=== PATIENT | female | born 1995 | race Caucasian/White ===

== ENCOUNTER → 2019-11-07 12:40 | Outpatient (CLI) | payer BC, SELFPAY ==
--- NOTE | 2019-11-07 12:42 | CA_ITS ---
APPROVED REPORT EXAM: Comprehensive 2D, Doppler, and color-flow Echocardiogram Hvac Project Engineer: Philomena Garza RVT Ht: 5 ft 3 in Wt: 203lbs BSA: 1.95 BP: 120/80 mmHg Indications: Palpitations, Dyspnea, Hypertension,Tachycardia,Smoker,GERD 2D Dimensions LVOT 1.90 cm (M/F) 1.5-2.5 M-Mode Dimensions RVDd 1.94 cm (0.9-2.6) LVDd 4.50 cm (3.5-5.7) LVDs 3.00 cm (3.5-5.7) IVSd 1.23 cm (0.6-1.1) PWd 0.60 cm (0.6-1.1) EF (Teich) 62.10% FS 33.30% EDV (Teich) 92.40 mL ESV (Teich) 35.00 mL LV Diastology E/A Ratio 0.17 Mitral Valve MV A Velocity 85.00 (40-130 cm/s) Left Ventricle Left atrium is normal size, left ventricle is normal size, there is no concentric left ventricular hypertrophy, visually estimated ejection fraction 55% with no regional wall motion abnormality, diastolic parameters are within normal range. Right Ventricle Right atrium and right ventricular normal size and contractility. Aortic Valve Aortic valve is grossly normal. There is no aortic stenosis or aortic insufficiency. Mitral Valve Mitral valve is grossly normal, there is trace mitral regurgitation. Tricuspid Valve Tricuspid valve is grossly normal, there is trace tricuspid regurgitation. Pulmonic Valve Pulmonic valve is poorly visualized. Great Vessels Aortic root is normal size. Pericardium No significant pericardial effusion noted. Conclusion 1. Normal left ventricular size, preserved left ventricular systolic function, visually estimated ejection fraction 55% with no regional wall motion abnormality, diastolic parameters are within normal range. 2. Trace mitral and tricuspid regurgitation. 3. No significant pericardial effusion noted. Electronically signed by : Edinson Lai, 11/07/2019 20:28:24
== END ==
PROVIDERS: PCP Family Medicine; Visit Provider Urology
DX: R00.2 Palpitations (principal); R06.00 Dyspnea, unspecified; I10 Essential (primary) hypertension
CPT/HCPCS: 93306

== ENCOUNTER → 2020-09-03 14:32 | Outpatient (CLI) | payer BC, SELFPAY ==
--- NOTE | 2020-09-03 14:35 | XR_ITS ---
PROCEDURE: XR CHEST 2V CLINICAL HISTORY: wheezing COMPARISON: CR CXR CHEST(2 VIEWS-NOT PORTABLE) from 07/28/2013 CR XR CHEST 2V from 10/30/2019 FINDINGS: The cardiomediastinal silhouette and pulmonary vascularity are within normal limits. The lungs are clear without infiltrates, suspicious nodules, or pleural effusions. There are surgical clips in the right paratracheal region. No acute bony findings. IMPRESSION: No change with no acute finding Dictated by: Pramod Ruiz MD 09/04/2020 05:41 Pramod Ruiz MD in [place] 09/04/2020 05:41
== END ==
PROVIDERS: PCP Family Medicine; Visit Provider Physician Assistant
DX: R06.2 Wheezing (principal)
CPT/HCPCS: 71046

== ENCOUNTER 2021-11-07 13:55 | Emergency (ER) | payer BC, SELFPAY ==
[2021-11-07 14:18] VITALS: BP 102/68; PULSE 68; RESP 19; TEMP 36.8; O2SAT 100; BMI 36.7
[2021-11-07 14:34] LABS: UTC Influenza A Antigen Negative (Negative); UTC Influenza B Antigen Negative (Negative); UTC Strep Screen (Rapid) Positive (Negative)
--- NOTE | 2021-11-07 14:39 | HMH.EDUTC ---
[facility] [place] Disposition Clinical Impression: Strep throat Disposition: Home, Self-Care Condition on Discharge: Good Instructions: DI for Strep Throat, Strep Throat, Amoxicillin Additional Instructions: *Monitor Temp, Over the counter Motrin or Tylenol as directed/as needed Tylenol every 4 hours and Motrin every 6 hours (as long as your family doctor has told you that you can take it) for fever or pain. and straight to ER if unable to lower temp less than 101.0 after medication given *Warm salt water gargles may help to soothe the throat *Throat Lozenges *Warm fluids like tea with honey may help to soothe the throat *Sleep elevated *Humidifier/Vaporizer *If you did not take Penicillin shot or was unable to, start taking antibiotic immediately and make sure that you take it for the FULL length of time although you should start to feel better in 24-48 hours *change toothbrush and toothpaste 24-48 hours after starting to take antibiotics so you do not reinfect yourself Monitor Temp. Tylenol and/or Ibuprofen as needed. ER if fever is no less than 101 despite alternating Tylenol and Ibuprofen * Encourage fluids, water, Gatorade, powerade, pedialyte if /toddler/or child *Cold fluids, popsicles and ice cream may feel good on his throat Follow up IMMEDIATELY for new or worsening symptoms or no Noticeable improvement over the next 48-72 hours. 911 for difficulty breathing or swallowing Prescriptions: Amoxicillin [Amoxicillin 500mg Cap] 500 mg PO BID 10 Days #20 cap Transmission Status: Pending to [facility] Referrals: Kelsi Gonzalez MD [Primary Care Provider] - As needed Forms: Work/School Release Time of Disposition: 14:43 Medical Decision Making - Aj Inquiry Pt receiving controlled substance: No Aj was queried for this patient: No Vital Signs: 11/07/21 14:18 Temperature 98.2 F Temperature Source Oral Pulse Rate [Right Radial] 68 Respiratory Rate 19 Blood Pressure [Right Arm] 102/68 L Blood Pressure Mean [Right Arm] 79 Blood Pressure Source [Right Arm] Automatic Cuff Blood Pressure Position [Right Arm] Sitting 02 Sat by Pulse Oximetry 100 Oxygen Delivery Method Room Air - Lab Data Lab results reviewed: Yes: I reviewed the patient's lab results. Lab Results 11/07/21 14:18: Influenza Type A Ag Negative, Influenza Type B Ag Negative 11/07/21 14:18: Strep Scn Rapid Clinic Positive A Orders (Tests/Meds): ORDERS Category Date Time Status Covid-19 Nasal PCR ([facility]) Routine Lab 11/07/21 14:18 Received [facility] HPI - General Stated complaint: bilateral ear pain, sore throat Time Seen by Provider: 11/07/21 14:39 Mode of Arrival: Ambulatory Source of Information: Patient Limitations: No Limitations Description of Symptoms (Recalled from Triage Doc. by RN): C/O earache, sore throat, congestion, bodyaches, fatigue since this AM HEENT Symptoms (Recalled from RN notes): Yes (earache, sore throat, congestion) Resp Symptoms (Recalled from RN notes): No Skin Symptoms (Recalled from RN notes): No MS Symptoms (Recalled from RN notes): Yes (bodyaches) Functional Status (Recalled from RN notes): n/a - History of Present Illness Provider Complaint: Patient states that she has been feeling achy all over, headache, bilateral ear pain and sore throat that started this morning and has continued to get worse throughout the day States that this evening she ws still feeling bad so she came in to get checked - Related Data Previous Rx's Medication Instructions Recorded amoxicillin 500 mg tablet 500 mg PO BID 10 Days #20 tab 06/01/21 bisoprolol fumarate 10 mg tablet See Rx Instructions .ROUTE 08/15/21 .COMPLEX #30 tab Amoxicillin [Amoxicillin 500mg 500 mg PO BID 10 Days #20 cap 11/07/21 Cap] Allergies Allergy/AdvReac Type Severity Reaction Status Date / Time No Known Allergies Allergy Verified 06/01/21 13:05 - Worker's Comp Is this a Worker's Comp case?: No [facility] History
[2021-11-07 14:50] VITALS: BP 102/68; PULSE 68; RESP 19; TEMP 36.8; O2SAT 100
== END 2021-11-07 14:50 | disposition home or self-care (01) ==
PROVIDERS: Emergency Provider Nurse Practitioner; PCP Family Medicine
DX: J02.0 Streptococcal pharyngitis (principal); I10 Essential (primary) hypertension; K21.9 Gastro-esophageal reflux disease without esophagitis; F17.210 Nicotine dependence, cigarettes, uncomplicated
CPT/HCPCS: 87804; 87880; 99203; C9803; G0463; U0003; U0005

== ENCOUNTER 2021-11-16 09:26 | Emergency (ER) | payer BC, SELFPAY ==
[2021-11-16 09:30] VITALS: BP 128/78; PULSE 68; RESP 18; TEMP 37.1; O2SAT 98; BMI 34.2
[2021-11-16 10:06] LABS: UTC Strep Screen (Rapid) Negative (Negative)
--- NOTE | 2021-11-16 10:26 | HMH.EDUTC ---
[facility] [place] Disposition Clinical Impression: Exposure to COVID-19 virus URI (upper respiratory infection) Qualifiers: URI type: unspecified URI Qualified Code(s): J06.9 - Acute upper respiratory infection, unspecified Disposition: Home, Self-Care Condition on Discharge: Good Instructions: DI for Viral Upper Respiratory Infection-Child, How to Care for Someone with COVID-19, DI for COVID-19 (Suspected or Confirmed ) Additional Instructions: covid swab was sent to lab, call tomorrow for results. self isolate until test results are known to be negative No sign of a bacterial infection. Likely viral. Viruses can take 7-14 days to run their course. Nasal saline and bulb syringe or nose Patricia to remove nasal drainage to help with nasal congestion. Hard to eat, drink, sleep with nasal congestion so important to keep this cleaned out. Monitor temp. Tylenol or Motrin as needed for pain or fever Encourage fluids, water, Gatorade, Powerade, Pedialyte if infant/toddler/child Warm salt water gargles Warm fluids Sore throat lozenges Sleep elevated Humidifier/vaporizer Follow-up immediately for new or worsening symptoms or no noticeable improvement over the next 48-72 hours. Prescriptions: predniSONE [Prednisone 20mg Tab] 20 mg PO BID #10 tab Transmission Status: Pending to [facility] Referrals: Kelsi Gonzalez MD [Primary Care Provider] - Time of Disposition: 10:33 Medical Decision Making - Aj Inquiry Pt receiving controlled substance: No Vital Signs: 11/16/21 09:30 Temperature 98.7 F Temperature Source Oral Pulse Rate [Right Brachial] 68 Respiratory Rate 18 Blood Pressure [Right Arm] 128/78 Blood Pressure Mean [Right Arm] 94 Blood Pressure Source [Right Arm] Automatic Cuff Blood Pressure Position [Right Arm] Sitting 02 Sat by Pulse Oximetry 98 Oxygen Delivery Method Room Air - Lab Data Lab Results 11/16/21 09:43: Strep Scn Rapid Clinic Negative Orders (Tests/Meds): ORDERS Category Date Time Status Covid-19 Nasal PCR ([facility]) Routine Lab 11/16/21 09:43 Received Strep Screen Confirmation Stat Micro 11/16/21 09:[address] [facility] HPI - General Chief complaint: [facility] Stated complaint: sore throat, cough Time Seen by Provider: 11/16/21 10:27 Mode of Arrival: Ambulatory Source of Information: Patient Limitations: No Limitations Description of Symptoms (Recalled from Triage Doc. by RN): PATIENT C/O SORE THROAT AND COUGH X 1 WEEK HEENT Symptoms (Recalled from RN notes): Yes Resp Symptoms (Recalled from RN notes): Yes Skin Symptoms (Recalled from RN notes): No MS Symptoms (Recalled from RN notes): No Functional Status (Recalled from RN notes): WNL - History of Present Illness Provider Complaint: 26 yr old female presents for cough, sore throat, nasal congestion,sinus pressure and runny nose for 1 and half week. exposed to covid - Related Data Home Medications Medication Instructions Recorded Confirmed bisoproloL fumarate [Bisoprolol 10 mg PO DAILY 11/16/21 11/16/21 Fumarate] Previous Rx's Medication Instructions Recorded predniSONE [Prednisone 20mg 20 mg PO BID #10 tab 11/16/21 Tab] Allergies Allergy/AdvReac Type Severity Reaction Status Date / Time No Known Allergies Allergy Verified 06/01/21 13:05 - Worker's Comp Is this a Worker's Comp case?: No [facility] History - Hepatitis A Screen Drug use history?: No High risk sexual behaviors?: No History of sexually transmitted infection?: No Currently employed?: No Childcare worker?: No Do you have indoor plumbing?: Yes Do you have electricity?: Yes Attestation statement:: This patient has been screened for Hepatitis A risk factors. I have reviewed the patient's past medical history: Yes Medical History: Reports:: Gastroesophageal Reflux Disease(GERD), Hypertension, Palpitations Denies:: Diabetes Mellitus Type 1, Diabetes Mellitus Type 2 Other Medical History: Reports: Thyroid
[2021-11-16 10:34] VITALS: BP 128/78; PULSE 68; RESP 18; TEMP 37.1; O2SAT 98
== END 2021-11-16 10:40 | disposition home or self-care (01) ==
PROVIDERS: Emergency Provider Nurse Practitioner Family; PCP Family Medicine
DX: U07.1 COVID-19 (principal); J06.9 Acute upper respiratory infection, unspecified; J02.9 Acute pharyngitis, unspecified; R00.2 Palpitations; I10 Essential (primary) hypertension; K21.9 Gastro-esophageal reflux disease without esophagitis; E89.0 Postprocedural hypothyroidism; Z79.52 Long term (current) use of systemic steroids; Z82.49 Family history of ischemic heart disease and other diseases of the circulatory system
CPT/HCPCS: 87880; 99213; C9803; G0463; U0003; U0005

== ENCOUNTER 2021-12-08 11:16 | Emergency (ER) | payer BC, SELFPAY ==
[2021-12-08 12:15] VITALS: BP 126/72; PULSE 74; RESP 16; TEMP 36.8; O2SAT 99; BMI 39.3
--- NOTE | 2021-12-08 12:18 | XR_ITS ---
PROCEDURE INFORMATION: Exam: XR Chest Exam date and time: 12/08/2021 12:13 PM Age: 26 years old Clinical indication: Cough; Additional info: Post covid. Chest congestion/cough TECHNIQUE: Imaging protocol: XR of the chest. Views: 2 views. COMPARISON: CR XR CHEST 2V 09/03/2020 2:36 PM FINDINGS: Tubes, catheters and devices: Surgical clips project over the right aspect of the neck. Lungs: No focal airspace disease. Pleural spaces: Unremarkable. No pleural effusion. No pneumothorax. Heart/Mediastinum: Cardiomediastinal silhouette is within normal limits. Bones/joints: Unremarkable. IMPRESSION: No acute cardiopulmonary abnormality.
--- NOTE | 2021-12-08 12:29 | HMH.EDUTC ---
[facility] [place] Clinical Impression: Acute bronchitis Qualifiers: Bronchitis organism: unspecified organism Qualified Code(s): J20.9 - Acute bronchitis, unspecified Sinusitis Qualifiers: Sinusitis location: unspecified location Chronicity: acute Recurrence: non-recurrent Qualified Code(s): J01.90 - Acute sinusitis, unspecified Disposition: Home, Self-Care Condition on Discharge: Good Instructions: Sinusitis, DI for Sinusitis, DI for Acute Bronchitis Additional Instructions: Drink plenty of fluids. Take tylenol or ibuprofen for pain or fever. Take the medications as directed. Follow up with your regular doctor. GO TO THE ER FOR ANY WORSENING SYMPTOMS Don't start the oral steroids until tomorrow, since you had the shot here today. The cough medication (promethazine dm) will make you drowsy, so don't drive or operate heavy machinery after taking it. Prescriptions: Promethazine/Dextromethorphan [Promethazine-Dm Syrup] 5 ml PO Q6HP PRN #240 ml PRN Reason: Cough Transmission Status: Received by [facility] methylPREDNISolone [Medrol] 4 mg PO DIRECTED 6 Days #21 packet Transmission Status: Received by [facility] Azithromycin [Z-Bennett 250mg Tab*] 250 mg PO UD DOSE PK #6 tab Transmission Status: Received by [facility] Referrals: Kelsi Gonzalez MD [Primary Care Provider] - Forms: Work/School Release Time of Disposition: 12:56 Medical Decision Making - Medical Records Medical records reviewed: No: I reviewed the patient's medical records. - Aj Inquiry Pt receiving controlled substance: No Vital Signs: 12/08/21 12:15 12/08/21 13:48 Temperature 98.3 F 98.3 F Temperature Source Oral Pulse Rate 74 Pulse Rate [Left] 74 Respiratory Rate 16 16 Blood Pressure 126/72 Blood Pressure [Right Arm] 126/72 Blood Pressure Mean [Right Arm] 90 02 Sat by Pulse Oximetry 99 - Lab Data Lab results reviewed: Yes: I reviewed the patient's lab results. Orders (Tests/Meds): ED MEDICATIONS Discontinued Medications Generic Name Dose Route Start Last Admin Trade Name Freq PRN Reason Stop Dose Admin Ceftriaxone Sodium 1 gm 12/08/21 12:55 12/08/21 13:07 Ceftriaxone 1gm Vial IM 12/08/21 12:56 1 gm ONCE ONE Administration Lidocaine HCl 0 ml 12/08/21 12:55 12/08/21 13:07 Lidocaine 1% 5ml Pf Vial IM 12/08/21 12:56 2 ml ONCE ONE Administration Methylprednisolone Sodium Succinate 125 mg 12/08/21 12:55 12/08/21 13:07 Methylprednisolone Sod Succ 125mg Vial IM 12/08/21 12:56 125 mg ONCE ONE Administration [facility] [place] HPI - General Stated complaint: congestion, sore throat, cough, ear pain Time Seen by Provider: 12/08/21 12:30 Mode of Arrival: Ambulatory Source of Information: Patient Limitations: No Limitations Description of Symptoms (Recalled from Triage Doc. by RN): pt was treated for covid and strep about two weeks ago. pt c/o congestion, cough, ears aching and pressure in her chest with coughing. pt states she feels like she just keeps getting worse. HEENT Symptoms (Recalled from RN notes): Yes Resp Symptoms (Recalled from RN notes): Yes Skin Symptoms (Recalled from RN notes): No MS Symptoms (Recalled from RN notes): No Functional Status (Recalled from RN notes): wnl - History of Present Illness Provider Complaint: She states that she has been coughing and congested for the past 3 weeks. She originally had covid-19. She did get some better, but then over the past 3 days she has became more congested in her chest and she is having worsening sinus congestion. - Related Data Home Medications Medication Instructions Recorded Confirmed bisoproloL fumarate [Bisoprolol 10 mg PO DAILY 11/16/21 11/16/21 Fumarate] Previous Rx's Medication Instructions Recorded predniSONE [Prednisone 20mg 20 mg PO BID #10 tab 11/16/21 Tab] Azithromycin [Z-Bennett 250mg Tab*] 250 mg PO UD DOSE PK #6 tab 12/08/21 Promethazine/Dextromethor
[2021-12-08 13:48] VITALS: BP 126/72; PULSE 74; RESP 16; TEMP 36.8
== END 2021-12-08 13:48 | disposition home or self-care (01) ==
PROVIDERS: Emergency Provider Nurse Practitioner Family; PCP Family Medicine
DX: J20.9 Acute bronchitis, unspecified (principal); J01.90 Acute sinusitis, unspecified; I10 Essential (primary) hypertension; K21.9 Gastro-esophageal reflux disease without esophagitis; R00.2 Palpitations
CPT/HCPCS: 71046; 96372; 99213; G0463; J0696

== ENCOUNTER 2022-07-15 11:18 | Emergency (ER) | payer BC, SELFPAY ==
--- NOTE | 2022-07-15 12:42 | EXP.UTC ---
Discharge Plan Disposition Patient Disposition: Home, Self-Care Condition: Good Prescriptions Prescriptions: New methylprednisolone 4 mg Tablets,Dose Pack 4 mg PO DIRECTED Qty: 21 0RF No Action bisoprolol fumarate 10 mg tablet 10 mg PO DAILY Qty: 30 2RF Rx Instructions: TAKE 1 TABLET BY MOUTH ONCE DAILY prednisone 20 MG tablet 20 mg PO BID Qty: 10 0RF promethazine-DM 120 ML syrup 5 ml PO Q6HP PRN (Reason: Cough) Qty: 240 0RF azithromycin 250 MG tablet 250 mg PO UD DOSE PK Qty: 6 0RF Rx Instructions: Take two (2) tablets today, then one (1) tablet days #2 thru #5 methylprednisolone 4 MG tablets,dose pack 4 mg PO DIRECTED 6 Days Qty: 21 0RF Referrals Follow up/Referrals: Kelsi Gonzalez MD [Primary Care Provider] - See instructions Activity Restrictions/Add. Instructions Additional Instructions/Restrictions: Try to identify and avoid contact with the offending substance. Don't start the oral steroids until tomorrow. Follow up with your regular doctor. GO TO THE ER FOR ANY WORSENING SYMPTOMS OR CONCERNS I worry that you may have Pityriasis. This is a viral infection that causes a rash like you have. But, it is hard to tell the diffence between this and an allergic reaction, so we will treat you for the allergic reaction with steroids. But, if you are not doing better in a few days make sure you follow up with your primary care provider. Pityriasis rosea is a common skin condition that causes a temporary rash of raised red scaly patches on the body. The steroids will help with your itching, but it will not do much for the course of this condition. This rash can last for a few weeks. If you are not getting better with the steroids then please follow up. Clinical Impressions Clinical Impression: Allergic reaction Instructions Patient Instructions: DI for General Allergic Reactions, DI for Pityriasis Rosea Discharge ED Provider: David White [facility] General Stated complaint: Rash on body Time Seen by Provider: 07/15/22 12:42 History of Present Illness Provider Complaint: She states that for the past 1 week she has had an itchy rash on her neck, face and trunk. She denies any known exposure to any allergens. In the past she has been allergic to the washing powders she was using and had a similar reaction. She did use a different one to wash her clothes with before her current symptoms started. He denies any fever, chills or malaise. Related Data Previous Rx's Medication Instructions Recorded prednisone 20 mg tablet 20 mg PO BID #10 tabs 11/16/21 azithromycin 250 mg tablet 250 mg PO UD DOSE PK #6 tabs 12/08/21 methylprednisolone 4 mg tablets in 4 mg PO DIRECTED 6 days #21 12/08/21 a dose pack packets promethazine-DM 6.25 mg-15 mg/5 mL 5 ml PO Q6HP PRN Cough #240 mL 12/08/21 oral syrup bisoprolol fumarate 10 mg tablet 10 mg PO DAILY . #30 tabs 05/06/22 methylprednisolone 4 mg tablets in 4 mg PO DIRECTED #21 tabs 07/15/22 a dose pack Allergies Allergy/AdvReac Type Severity Reaction Status Date / Time No Known Allergies Allergy Verified 07/15/22 12:55 [facility] Medical History Edema Tobacco dependence syndrome Social History Smoking Status: Current every day smoker tobacco type: cigarettes packs per day: 1 alcohol intake: never current occupational status: employed Travel in the last 8 weeks: None ROS Obtained: Yes All systems reviewed & no additional complaints except as documented Constitutional Constitutional: Denies chills and Denies fever(s) Eyes Eyes: Denies eye discharge ENT Ears, Nose, Mouth, and Throat: Denies dizziness, Denies otalgia and Denies sore throat Cardiovascular Cardiovascular: Denies chest pain Respiratory Respiratory: Denies shortness of breath, Denies chest congestion, Denies cough, Denie
[2022-07-15 12:46] VITALS: BP 140/88; PULSE 52; RESP 18; TEMP 36.7; O2SAT 100; BMI 40.2
[2022-07-15 13:27] VITALS: BP 140/55; PULSE 60; RESP 18; TEMP 36.7
== END 2022-07-15 13:29 | disposition home or self-care (01) ==
PROVIDERS: Emergency Provider Nurse Practitioner Family; PCP Family Medicine
DX: R21 Rash and other nonspecific skin eruption (principal); T78.40XA Allergy, unspecified, initial encounter
CPT/HCPCS: 96372; 99212; G0463

== ENCOUNTER → 2022-12-10 14:05 | Outpatient (CLI) | payer BC, SELFPAY ==
[2022-12-10 16:37] LABS: Basophils # 0.1 K/mm3 (0-0.2); Eosinophils # 0.1 K/mm3 (0.0-0.4); Eosinophils % 0.7 % (0.1-12.0); Hemoglobin 14.3 g/dL (12.2-16.2); Lymphocytes # 3.4 K/mm3 (0.7-4.5); Lymphocytes % 27.4 % (10-50); Mean Corpuscular HGB Conc 31.7 g/dL (31.8-35.4); Mean Corpuscular Volume 104.2 fl (81-99); Mean Platelet Volume 8.5 fl (7.4-10.4); Monocytes # 0.4 K/mm3 (0.1-1.0); Monocytes % 3.2 % (1.7-9.3); Neutrophils # 8.3 K/mm3 (1.8-7.8); Neutrophils % 67.7 % (37.0-80.0); Platelet Count 297 K/mm3 (142-424); Red Blood Count 4.32 M/mm3 (4.20-5.40); White Blood Count 12.3 K/mm3 (4.8-10.8)
[2022-12-10 17:19] LABS: Alanine Aminotransferase 40 U/L (12-78); Albumin Level 3.8 g/dl (3.5-5.0); Albumin/Globulin Ratio 1.6 (1.1-1.8); Alkaline Phosphatase 95 U/L (38-126); Anion Gap 9.2 mEq/L (5-15); Aspartate Amino Transferase 53 U/L (14-36); Bilirubin,Total 0.7 mg/dl (0.2-1.3); Blood Urea Nitrogen 5 mg/dl (7-17); Calcium 8.4 mg/dl (8.4-10.2); Carbon Dioxide 28 mmol/L (22.0-30.0); Chloride 102 mmol/L (98-107); Estimated Glomerular Filt Rate 102 ml/min (>60); GFR (African American) 123 ML/MIN (>60); Globulin 2.4 g/dL (1.3-3.2); Glucose 76 mg/dl (74-100); Potassium 4.2 mmoL/L (3.5-5.1); Sodium 135 mmol/L (136-145); Total Protein,Serum 6.2 g/dl (6.3-8.2)
[2022-12-10 17:48] LABS: Thyroid Stimulating Hormone 3.15 uIU/mL (0.465-4.68)
[2022-12-10 21:01] LABS: HCG Qualitative, Serum Negative (Negative)
[2022-12-12 12:12] LABS: FSH 4.6 mIU/mL (.); LH 14.8 mIU/mL (.); Prolactin 6.4 ng/mL (4.8-23.3)
== END ==
PROVIDERS: PCP Family Medicine; Visit Provider Family Medicine
DX: N91.2 Amenorrhea, unspecified (principal)
CPT/HCPCS: 36415; 80053; 83001; 83002; 84146; 84443; 84703; 85025

== ENCOUNTER 2023-03-15 06:33 | Emergency (ER) | payer BC, SELFPAY ==
[2023-03-15 06:35] VITALS: BP 137/89; PULSE 92; RESP 20; TEMP 36.6; O2SAT 98; BMI 40.2
--- NOTE | 2023-03-15 06:57 | CT_ITS ---
PROCEDURE INFORMATION: Exam: CT Abdomen And Pelvis Without Contrast Exam date and time: 03/15/2023 7:24 AM Age: 27 years old Clinical indication: Abdominal pain; Flank; Right lower quadrant (rlq); Additional info: R flank and suprapubic pain, evaluate for stone TECHNIQUE: Imaging protocol: Computed tomography of the abdomen and pelvis without contrast. Radiation optimization: All CT scans at this facility use at least one of these dose optimization techniques: automated exposure control; mA and/or kV adjustment per patient size (includes targeted exams where dose is matched to clinical indication); or iterative reconstruction. REPORTING DATA: Count of CT and Cardiac NM exams in prior 12 months: This patient has received 0 known CTs and 0 known cardiac nuclear medicine studies in the 12 months prior to the current study. COMPARISON: BX US BIOPSY OR PARACENTESIS 04/30/2017 2:15 PM FINDINGS: Liver: Diffuse fatty infiltration of the liver. Gallbladder and bile ducts: No acute abnormality. No calcified stones. No ductal dilation. Pancreas: No acute abnormality. No ductal dilation. Spleen: No acute abnormality. Adrenal glands: No significant or acute abnormality. Kidneys and ureters: Moderate right hydroureteronephrosis secondary to a 6 x 4 mm right distal ureteral calculus just above the right UVJ. Grossly normal left kidney. Stomach and bowel: No acute abnormality. No obstruction. No significant bowel thickening. Appendix: Grossly normal nondilated visualized appendix. Intraperitoneal space: No significant fluid collection. No free air. Vasculature: No acute abnormality. No abdominal aortic aneurysm. Lymph nodes: No enlarged lymph nodes. Urinary bladder: Nondistended decompressed urinary bladder. No bladder calculi. Reproductive: Unremarkable as visualized. Bones/joints: No acute osseous abnormality. No dislocation. Soft tissues: No significant soft tissue abnormalities. IMPRESSION: 1. Moderate right hydroureteronephrosis secondary to a 6 x 4 mm right distal ureteral calculus just above the right UVJ. 2. Diffuse fatty infiltration of the liver.
[2023-03-15 07:04] LABS: Basophils # 0.1 K/mm3 (0-0.2); Basophils % 0.3 % (0.1-2.0); Eosinophils # 0.2 K/mm3 (0.0-0.4); Hematocrit 44.6 % (37.0-47.0); Hemoglobin 14.5 g/dL (12.2-16.2); Lymphocytes # 2.5 K/mm3 (0.7-4.5); Lymphocytes % 16.5 % (10-50); Mean Corpuscular HGB Conc 32.6 g/dL (31.8-35.4); Mean Corpuscular Hemoglobin 31.4 pg (27.0-31.2); Mean Corpuscular Volume 96.4 fl (81-99); Mean Platelet Volume 7.8 fl (7.4-10.4); Monocytes # 0.6 K/mm3 (0.1-1.0); Monocytes % 3.6 % (1.7-9.3); Neutrophils # 11.9 K/mm3 (1.8-7.8); Neutrophils % 78.6 % (37.0-80.0); Platelet Count 272 K/mm3 (142-424); Red Blood Count 4.63 M/mm3 (4.20-5.40); Red Cell Distribution Width 13.6 % (11.5-17.5); White Blood Count 15.2 K/mm3 (4.8-10.8)
[2023-03-15 07:06] LABS: MANUAL DIFFERENTIAL MANUAL DIFFERENTIAL (MANUAL DIFF)
[2023-03-15 07:09] VITALS: BP 140/84; PULSE 86; O2SAT 96
[2023-03-15 07:09] LABS: Alanine Aminotransferase 57 U/L (12-78); Albumin Level 4.4 g/dl (3.5-5.0); Albumin/Globulin Ratio 1.4 (1.1-1.8); Alkaline Phosphatase 87 U/L (38-126); Anion Gap 17.8 mEq/L (5-15); Aspartate Amino Transferase 67 U/L (14-36); Bilirubin,Total 0.6 mg/dl (0.2-1.3); Blood Urea Nitrogen 5 mg/dl (7-17); Calcium 8.5 mg/dl (8.4-10.2); Carbon Dioxide 24 mmol/L (22.0-30.0); Chloride 102 mmol/L (98-107); Creatinine Clearance Estimated 194 mL/min (50-200); Estimated Glomerular Filt Rate 102 ml/min (>60); GFR (African American) 123 ML/MIN (>60); Globulin 3.2 g/dL (1.3-3.2); Glucose 120 mg/dl (74-100); Potassium 3.8 mmoL/L (3.5-5.1); Sodium 140 mmol/L (136-145); Total Protein,Serum 7.6 g/dl (6.3-8.2)
--- NOTE | 2023-03-15 07:10 | PC.NURSE ---
PT MEDICATED PER EMAR, UPDATED ON POC. NO NEEDS AT THIS TIME. CALL LIGHT WITHIN REACH
[2023-03-15 07:13] LABS: HCG Qualitative, Serum Negative (Negative)
[2023-03-15 07:16] LABS: Lymphocytes % 24 % (10-50); Monocytes % 2 % (2-9); Neutrophils % 74 % (42-76); Platelet Estimate Normal; RBC Morphology Normal; Total Cells Counted 100
--- NOTE | 2023-03-15 07:21 | PC.NURSE ---
PT TO CT AT THIS TIME
--- NOTE | 2023-03-15 07:21 | PC.NURSE ---
pt to radiology via wheelchair
--- NOTE | 2023-03-15 07:26 | PC.NURSE ---
pt return from CT
[2023-03-15 07:31] VITALS: BP 102/59; O2SAT 95
--- NOTE | 2023-03-15 07:56 | HMH.EDGENADL ---
Discharge Plan Disposition Patient Disposition: Home, Self-Care Condition: Good Prescriptions Prescriptions: New ketorolac 10 mg Tablet 10 mg PO Q6H PRN (Reason: pain.) Qty: 8 0RF No Action albuterol sulfate [Proventil HFA] 90 mcg/actuation HFA aerosol inhaler 2 inh inhalation QID PRN (Reason: shortness of breath or wheezing) Qty: 8.5 2RF bisoprolol fumarate 10 mg tablet 10 mg PO DAILY Qty: 30 2RF Rx Instructions: TAKE 1 TABLET BY MOUTH ONCE DAILY Referrals Follow up/Referrals: Provider,Referral, MD [Primary Care Provider] - See instructions Activity Restrictions/Add. Instructions Additional Instructions/Restrictions: Your work-up today showed that you have a kidney stone in your right ureter. It is likely that you will pass this kidney stone on your own without any intervention. I have prescribed you some Toradol and sent it to your pharmacy. Toradol is the same medicine you got in the emergency department today which helped your pain. You can take Tylenol with Toradol. Return immediately to the emergency department if you get worse in any way. Especially if you develop a fever you must return to the emergency department immediately. Follow-up with your primary care doctor in about 1 to 2 weeks. You have been given a small sieve. Use this if every time you urinate and urinate through the sieve. The sieve is to catch the kidney stone for you to then give it to your primary care doctor for analysis. 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 by RN): Pt c/o R flank and suprapubic pain that began late last night. She has been straining to void but not much has come out t/o the night. Pt does report a hx of kidney stones. She reports nausea without vomiting. Bladder scan showed < 1ml. History of Present Illness HPI narrative: The patient presents to the emergency department complaining of right flank pain that was sudden in onset at about 10 PM. She has had similar symptoms about 6 years ago when she was diagnosed with a kidney stone. She vomited once. She denies into the diarrhea or fevers. At this point the patient is pain-free after Toradol. Related Data Previous Rx's Medication Instructions Recorded albuterol sulfate 90 mcg/actuation 2 inh inhalation QID PRN shortness 07/30/22 aerosol inhaler (Proventil HFA) of breath or wheezing #8.5 grams bisoprolol fumarate 10 mg tablet 10 mg PO DAILY . #30 tabs 01/08/23 ketorolac 10 mg tablet 10 mg PO Q6H PRN pain. #8 tabs 03/15/23 Allergies Allergy/AdvReac Type Severity Reaction Status Date / Time No Known Allergies Allergy Verified 12/10/22 13:22 [facility] Disclaimer: The information contained in this section may have been updated after the patient was seen, as this information can be updated by other users. Medical History Allergic reaction Edema Hypertension Hypothyroidism Tobacco dependence syndrome Surgical History History of partial thyroidectomy History of tonsillectomy Family History Mother Hypertension Social History Smoking Status: Current every day smoker tobacco type: cigarettes packs per day: 1 years smoked: 5 alcohol intake: current substance use type: denies use current occupational status: unemployed Travel in the last 8 weeks: None ado
--- NOTE | 2023-03-15 07:57 | PC.NURSE ---
dr roman at bedside
[2023-03-15 08:01] VITALS: BP 114/63; PULSE 84; O2SAT 95
--- NOTE | 2023-03-15 08:03 | PC.NURSE ---
assisted to br
[2023-03-15 08:10] LABS: Microscopic, Urine URINE MICROSCOPIC (MICROSCOPIC)
[2023-03-15 08:12] LABS: Appearance,Urine CLOUDY (Clear); Blood, Urine 3+ (Negative); Color,Urine AMBER (Yellow); Glucose,Urine (UA) Negative (Negative); Ketones,Urine Negative (Negative); Leukocyte Esterase,Urine 2+ (Negative); Nitrate,Urine POSITIVE (Negative); PH,Urine 5.5 (5.0-8.5); Protein,Urine 2+ (Negative); Specific Gravity, Urine 1.025 (1.005-1.030)
[2023-03-15 08:16] LABS: Bilirubin,Urine 2+ (Negative)
[2023-03-15 08:28] LABS: Bacteria,Urine Trace /lpf; RBC,Urine TNTC #/hpf (0-3); WBC,Urine Occasional #/hpf (0-3)
[2023-03-15 08:30] VITALS: BP 112/70; PULSE 65; O2SAT 96
--- NOTE | 2023-03-15 08:31 | PC.NURSE ---
DR PENA AT BEDSIDE TO UPDATE PT
[2023-03-15 08:50] VITALS: BP 112/70; PULSE 80; RESP 17; TEMP 36.8; O2SAT 98
== END 2023-03-15 08:50 | disposition home or self-care (01) ==
PROVIDERS: Emergency Medicine; Emergency Provider Emergency Medicine
DX: N20.2 Calculus of kidney with calculus of ureter (principal); R10.2 Pelvic and perineal pain; I10 Essential (primary) hypertension; E89.0 Postprocedural hypothyroidism; F17.210 Nicotine dependence, cigarettes, uncomplicated
CPT/HCPCS: 74176; 80053; 81001; 84703; 85007; 85025; 87086; 87088; 87186; 96361; 96374; 96375; 99284; 99285; J2405

== ENCOUNTER 2023-03-17 14:37 | Emergency (ER) | payer BC, SELFPAY ==
[2023-03-17] VITALS (8 sets, daily range): BP systolic 107–118; BP diastolic 55–68; PULSE 79–125; RESP 16–20; TEMP 37.2–37.3; O2SAT 95–97; BMI 40.2
--- NOTE | 2023-03-17 15:01 | CT_ITS ---
PROCEDURE INFORMATION: Exam: CT Abdomen And Pelvis Without Contrast Exam date and time: 03/17/2023 3:16 PM Age: 27 years old Clinical indication: Abdominal pain; Flank; Right; Additional info: RT flankpain TECHNIQUE: Imaging protocol: Computed tomography of the abdomen and pelvis without contrast. Radiation optimization: All CT scans at this facility use at least one of these dose optimization techniques: automated exposure control; mA and/or kV adjustment per patient size (includes targeted exams where dose is matched to clinical indication); or iterative reconstruction. REPORTING DATA: Count of CT and Cardiac NM exams in prior 12 months: This patient has received [address] and 0 known cardiac nuclear medicine studies in the 12 months prior to the current study. COMPARISON: CT ABDOMEN PELVIS WO CON 03/15/2023 7:24 AM FINDINGS: Liver: Markedly fatty liver. Gallbladder and bile ducts: Unremarkable. Pancreas: Unremarkable. Spleen: Unremarkable. Adrenal glands: Unremarkable. Kidneys and ureters: Distal right ureteral stone (8 x 4 mm) located at the ureterovesical junction associated with moderate right hydroureteronephrosis and renal edema. No other renal or ureteral stones. No hydronephrosis. Stomach and bowel: Unremarkable. Appendix: Appendix is visualized and is normal. Intraperitoneal space: No free fluid. No pneumoperitoneum. Vasculature: Unremarkable. Lymph nodes: Unremarkable. Urinary bladder: Unremarkable. Reproductive: Unremarkable. Bones/joints: No evidence of acute osseous abnormality. Soft tissues: Unremarkable. IMPRESSION: 1. Distal right ureteral stone (8 x 4 mm) located at the ureterovesical junction associated with moderate right hydroureteronephrosis and renal edema. 2. Markedly fatty liver.
--- NOTE | 2023-03-17 15:03 | HMH.EDGENADL ---
Discharge Plan Disposition Patient Disposition: Xfer Short-Term Hosp Condition: Fair Chief Complaint: PAIN Prescriptions Prescriptions: No Action albuterol sulfate [Proventil HFA] 90 mcg/actuation HFA aerosol inhaler 2 inh inhalation QID PRN (Reason: shortness of breath or wheezing) Qty: 8.5 2RF bisoprolol fumarate 10 mg tablet 10 mg PO DAILY Qty: 30 2RF Rx Instructions: TAKE 1 TABLET BY MOUTH ONCE DAILY ketorolac 10 mg Tablet 10 mg PO Q6H PRN (Reason: pain.) Qty: 8 0RF Referrals Follow up/Referrals: Provider,Referral, MD [Primary Care Provider] - See instructions Clinical Impressions Clinical Impression: Acute unilateral obstructive uropathy, Pyelonephritis Discharge ED Provider: True Rogers General Adult HPI General Chief complaint: PAIN Stated complaint: Fever, lower back pain Time Seen by Provider: 03/17/23 15:31 Mode of Arrival: Ambulatory Source of Information: Patient Limitations: No Limitations Description of Symptoms (Recalled from ER Triage Doc. by RN): c/o lower back pain, fever, chills, aches and soa that started mainly today. Pt states she was seen here Thursday for a kidney stone. History of Present Illness HPI narrative: This is a 27-year-old obese female who was seen in the emergency room 2 days ago and diagnosed with a ureteral stone patient presents today with increased right flank pain fevers chills nausea and vomiting. Patient says she is lost her appetite and has not been able to hold any food down. No diarrhea no headache. Patient states she has been straining her urine but has not noticed any gravel. Related Data Previous Rx's Medication Instructions Recorded albuterol sulfate 90 mcg/actuation 2 inh inhalation QID PRN shortness 07/30/22 aerosol inhaler (Proventil HFA) of breath or wheezing #8.5 grams bisoprolol fumarate 10 mg tablet 10 mg PO DAILY . #30 tabs 01/08/23 ketorolac 10 mg tablet 10 mg PO Q6H PRN pain. #8 tabs 03/15/23 Allergies Allergy/AdvReac Type Severity Reaction Status Date / Time No Known Allergies Allergy Verified 12/10/22 13:22 [facility] Disclaimer: The information contained in this section may have been updated after the patient was seen, as this information can be updated by other users. Medical History Allergic reaction Edema Hypertension Hypothyroidism Tobacco dependence syndrome Surgical History History of partial thyroidectomy History of tonsillectomy Family History Mother Hypertension Social History Smoking Status: Current every day smoker tobacco type: cigarettes packs per day: 1 years smoked: 5 alcohol intake: current substance use type: denies use current occupational status: unemployed Travel in the last 8 weeks: None adopted: No foster care: No marital status: single number of children: 1 ROS Obtained: Yes All systems reviewed & no additional complaints except as documented Skin no rash or lesions HEENT no runny nose sore throat Pulmonary no cough or shortness of breath Cardiovascular no chest pain pressure heaviness GI see HPI see HPI Musculoskeletal no neck or back pain Endocrine no polydipsia polyuria or polyphasia Psych no SI or HI The rest of the systems were reviewed and found to be negative Physical Exam Narrative Physical exam: Skin: Warm and dry HEENT: Normocephalic atraumatic extract muscles are intact pupils are equal and reactive to light Neck: Supple nontender Lungs: Clear to auscultation Heart: Regular rate and rhythm Abdomen: NABS soft with right upper quadrant tenderness no guarding or rebound there is right CVA tenderness present Extremities: No clubbing cyanosis or edema Neurologic: No unilateral weakness or numbness Lymphat
[2023-03-17 15:13] LABS: Basophils % 0.1 % (0.1-2.0); Chloride 96 mmol/L (98-107); Eosinophils # 0.1 K/mm3 (0.0-0.4); Eosinophils % 0.5 % (0.1-12.0); Hematocrit 39.5 % (37.0-47.0); Hemoglobin 13.1 g/dL (12.2-16.2); Lymphocytes # 0.8 K/mm3 (0.7-4.5); Lymphocytes % 4.1 % (10-50); Mean Corpuscular HGB Conc 33.1 g/dL (31.8-35.4); Mean Corpuscular Volume 96.6 fl (81-99); Mean Platelet Volume 9.6 fl (7.4-10.4); Monocytes # 0.5 K/mm3 (0.1-1.0); Monocytes % 2.4 % (1.7-9.3); Neutrophils # 17.5 K/mm3 (1.8-7.8); Neutrophils % 92.8 % (37.0-80.0); Platelet Count 124 K/mm3 (142-424); Red Blood Count 4.09 M/mm3 (4.20-5.40); Red Cell Distribution Width 13.7 % (11.5-17.5); Sodium 132 mmol/L (136-145); White Blood Count 18.9 K/mm3 (4.8-10.8)
[2023-03-17 15:14] LABS: Potassium 3.4 mmoL/L (3.5-5.1)
[2023-03-17 15:16] LABS: Alanine Aminotransferase 40 U/L (12-78); Albumin Level 3.3 g/dl (3.5-5.0); Albumin/Globulin Ratio 0.9 (1.1-1.8); Alkaline Phosphatase 57 U/L (38-126); Anion Gap 16.4 mEq/L (5-15); Aspartate Amino Transferase 49 U/L (14-36); Bilirubin,Total 0.7 mg/dl (0.2-1.3); Blood Urea Nitrogen 34 mg/dl (7-17); Calcium 7.4 mg/dl (8.4-10.2); Carbon Dioxide 23 mmol/L (22.0-30.0); Creatinine Clearance Estimated 68 mL/min (50-200); Estimated Glomerular Filt Rate 30 ml/min (>60); GFR (African American) 37 ML/MIN (>60); Globulin 3.5 g/dL (1.3-3.2); Glucose 94 mg/dl (74-100); Lipase 35 U/L (23-300); MANUAL DIFFERENTIAL MANUAL DIFFERENTIAL (MANUAL DIFF); Total Protein,Serum 6.8 g/dl (6.3-8.2)
[2023-03-17 15:30] LABS: Microscopic, Urine URINE MICROSCOPIC (MICROSCOPIC)
[2023-03-17 15:34] LABS: Appearance,Urine SL CLOUDY (Clear); Blood, Urine 3+ (Negative); Color,Urine YELLOW (Yellow); Glucose,Urine (UA) Negative (Negative); Ketones,Urine TRACE (Negative); Leukocyte Esterase,Urine 2+ (Negative); Nitrate,Urine Negative (Negative); Protein,Urine 3+ (Negative)
[2023-03-17 15:35] LABS: Lymphocytes % 7 % (10-50); Monocytes % 1 % (2-9); Neutrophils % 92 % (42-76); Platelet Estimate Slight Decrease; RBC Morphology Normal; Total Cells Counted 100
--- NOTE | 2023-03-17 15:38 | PC.NURSE ---
called [facility] to see if urologist was available today but due to holiday they had no one
--- NOTE | 2023-03-17 15:46 | PC.NURSE ---
called [facility] for [facility]
--- NOTE | 2023-03-17 15:50 | PC.NURSE ---
ULL SANTOS on phone with [facility].
--- NOTE | 2023-03-17 15:55 | PC.NURSE ---
Call made to [facility], [facility], [facility] for urology consult for pt. All facilities declined to acccept.
--- NOTE | 2023-03-17 15:57 | PC.NURSE ---
placed call to [facility] for urology, awaiting call back
[2023-03-17 16:02] LABS: Bilirubin,Urine 1+ (Negative)
--- NOTE | 2023-03-17 16:05 | PC.NURSE ---
updated pt about what going on and the plan is to transfer to for her to see urologist, nothing needed grandmother at bedside
[2023-03-17 16:08] LABS: Bacteria,Urine 1+ /lpf; Squamous Epithelial Cell,Urine Occasional #/hpf (0-5); WBC,Urine TNTC #/hpf (0-3)
--- NOTE | 2023-03-17 16:14 | PC.NURSE ---
Dr Rogers speaking with transfer center
--- NOTE | 2023-03-17 16:27 | PC.NURSE ---
Dr Lee accepting at
--- NOTE | 2023-03-17 17:40 | PC.NURSE ---
pt needs nothing at this time, call light at [facility]
== END 2023-03-17 18:18 | disposition short-term general hospital (02) ==
PROVIDERS: Emergency Provider Emergency Medicine
DX: N13.2 Hydronephrosis with renal and ureteral calculous obstruction (principal); N12 Tubulo-interstitial nephritis, not specified as acute or chronic; I10 Essential (primary) hypertension; E89.0 Postprocedural hypothyroidism; F17.210 Nicotine dependence, cigarettes, uncomplicated
CPT/HCPCS: 74176; 80053; 81001; 83605; 83690; 85007; 85025; 87086; 87088; 87186; 96365; 96375; 99285; J0696; J2405

== ENCOUNTER 2025-05-03 12:18 | Outpatient (CLI) | payer MEDICAID, SELFPAY ==
[2025-05-03 16:51] LABS: Coronavirus 19, PCR Not Detected (NotDetected); Influenza A, PCR Not Detected (NotDetected); Influenza B, PCR Not Detected (NotDetected)
--- OUTSIDE RECORDS SUMMARY | 2025-05-04 14:59 | XMS_ITS | Clinical Summary ---
Author Organization Healthcare Address [address] [place] [address] Care Team Providers Care Software Design Manager Name Role Phone Pcp, No Primary Care Provider Unavailabl e Allergies Active Allergy Reactions Criticality Noted Date Comments Morphine Anxiety Low 03/17/2023 Medications acetaminophen (Tylenol) 500 MG tablet Take 2 tablets (1,000 mg) by mouth every 6 (six) hours if needed for pain for up to 40 doses. 40 tablet 03/18/2023 Active ibuprofen 400 MG tablet Take 1 tablet (400 mg) by mouth every 6 (six) hours if needed for mild pain for up to 40 doses. 40 tablet 03/18/2023 Active Active Problems Problem Noted Date Diagnosed Date UTI (urinary tract infection) 03/18/2023 Calculus of ureterovesical junction (UVJ) 2022 Dysphagia 04/30/2018 05/20/2023 Pain, neck 04/30/2018 05/20/2023 Palpitations 04/30/2018 05/20/2023 Toxic thyroid nodule 04/27/2018 05/20/2023 Immunizations Immunization Administration Dates Next Due DTaP, Unspecified 05/30/2002,04/26/1999 HiB, unspecified 04/26/1999 IPV 10/21/2001 MMR 10/21/2001 Tdap 02/21/2008 Family History Medical History Relation Name Comments Thyroid disease Other 1 Thyroid disease Other 2 Relation Name Status Comments Other 1 Other 2 Social History Tobacco Use Types Packs/Day Years Used Date Smoking Tobacco: Every Day Cigarettes 0.5 7.6 Started: 2017 Smokeless Tobacco: Never Tobacco Cessation:Ready to Q uit: Not Asked; Counseling Given: Not Answered Alcohol Use Standard Drinks/Week Comments Yes 0 (1 standard drink = 0.6 oz pure alcohol) Alcoholic Drinks/day: Rarely consumes alcohol CAGE ASSESSMENT Answer Date Recorded Cage unable to access Not on file 03/17/2023 Maximum number of drinks you had on a given occasion in the last month? 2 drinks 03/17/2023 How many alcoholic Beverages do you typically drink in a week? 0 - 7 per week 03/17/2023 Have you ever felt you should CUT down on your d rinking? 0 03/17/2023 Have you been ANNOYED by peo ple criticizing your drinking? 0 03/17/2023 Have you felt GUILTY about your drinking? 0 03/17/2023 Have you had a drink first t annette in the morning ([employer]) to steady your nerves or to get rid of a hangover? 0 03/17/2023 CAGE Questionnaire Score 0 023 Comments Unknown Sex and Gender Information Value Date Recorded Sex Assigned at Not on file Legal Sex Female 6:14 PM EDT Gender Identity Not on file Sexual Orientation Not on file Last Filed Vital Signs Vital Sign Reading Time Taken Comments Blood Pressure 159/107 05/20/2023 1:48 PM EDT Pulse 87 05/20/2023 1:48 PM EDT Temperature 36.4 C (97.5 F) 03/18/2023 2:00 PM EDT Respiratory Rate 22 03/18/2023 2:00 PM EDT Oxygen Saturation 96% 03/18/2023 2:00 PM EDT Inhaled Oxygen Concentration - - Weight 103 kg (226 lb 6.6 oz) 05/20/2023 1:48 PM EDT Height 157.5 cm (5' 2 ) 05/20/2023 1:48 PM EDT Body Mass Index 41.41 05/20/2023 1:48 PM EDT Plan of Treatment Health Maintenance Due Date Last Done Comments [facility]-Depression Screening 1997 [facility]-HIV Screening 1997 [facility]-Hepatitis C Screening 1997 [facility]-/Child/Adol SDOH Screenings 1997 [facility]-IPV Vaccines (2 of 3 - 4-dose series) 11/18/2001 10/21/2001 [facility]-Varicella Vaccines (1 of 2 - 13+ 2-dose series) 2010 [facility]- SDOH Screenings 2015 [facility]-Adult SDOH Screenings 2015 [facility]-Hepatitis B Vaccines (1 of 3 - 19+ 3-dose series) 2016 [facility]-DTaP,Tdap,and Td Vaccine s (4 - Td or Tdap) 02/20/2018 02/21/2008, 05/30/2002, 04/26/1999 [facility]-Pap Smear 2018 HPV Vaccines (1 - 3-dose SCD M series) 2024 [id number] Vaccine (1 - 2023-25 season) 2024 [facility]-Influenza Vaccine (#1) 2025 [facility]-Zoster Vaccines (1 of 2) 2047 [facility]-HIB Vaccines Completed 04/26/1999 [facility]-Obesity Intervention Completed 05/20/2023 [facility]-Hepatitis A Vaccines Aged Out No longer eligible based on patient's age to complete this topic [facility]-Pneumococcal Vaccine: Pediatrics (0 to 5 Years) and At-Risk Patients (6 to 49 Years) Aged Out No longer eligible b ased on patient's age to complete this topic [facility]-Rotavirus Vaccines Aged Out No lo nger eligible based on patient's age to complete this topic Medical Devices Implanted Type Area Coke Loader Device Identifier Shelf Expiration Date Model / Serial / Lot Stent Ureteral Double Pigtail Pos 6fr 24cm - [id number] Implanted:Qty: 1 on 03/17/2023 by Gideon Harris MD at [facility] Right: [id number] 11/24/2024 [id number] / / [id number] Advance Directives * Full Code (Latest Code Status on File) Date Activated Date Inactivated Comments 03/18/2023 1:20 AM 03/18/2023 4:31 PM Question Answer Comments Patient has decision-making capacity? Yes Care Teams Software Design Manager Relationship Specialty Start Date End Date Pcp, Shannon [address] [place] [address] PCP - General Family Medicine 03/17/23
== END 2025-05-03 23:59 | disposition home or self-care (01) ==
LOC: LAB.DROPOF 05-04 14:57
PROVIDERS: PCP Nurse Practitioner Family; Visit Provider Nurse Practitioner Family
DX: J02.9 Acute pharyngitis, unspecified (principal)
CPT/HCPCS: 87631